=== PATIENT | female | born 1975 | race Native Hawaiian/Other Pacific Islander ===

== ENCOUNTER 2017-01-23 08:48 | Outpatient (CLI) | payer BC | END 2017-01-23 19:17 | disposition home or self-care (01) | LOC: MAMMO 08:48 | DX: Z12.31 Encounter for screening mammogram for malignant neoplasm of breast (principal) ==

== ENCOUNTER 2018-01-25 09:10 | Outpatient (CLI) | payer BC | END 2018-01-25 22:47 | disposition home or self-care (01) | LOC: MAMMO 09:10 | DX: Z12.31 Encounter for screening mammogram for malignant neoplasm of breast (principal) ==

== ENCOUNTER 2018-02-10 09:34 | Outpatient (CLI) | payer BC | END 2018-02-10 19:02 | disposition home or self-care (01) | LOC: MAMMO 09:34 | DX: R92.8 Other abnormal and inconclusive findings on diagnostic imaging of breast (principal) ==

== ENCOUNTER 2019-02-04 08:39 | Outpatient (CLI) | payer BC | END 2019-02-04 19:37 | disposition home or self-care (01) | LOC: MAMMO 08:39 | DX: Z12.31 Encounter for screening mammogram for malignant neoplasm of breast (principal) ==

== ENCOUNTER 2020-02-07 09:12 | Outpatient (CLI) | payer BC | END 2020-02-07 19:09 | disposition home or self-care (01) | LOC: MAMMO 09:12 | PROVIDERS: ATTEND Nurse Practitioner Family | DX: Z12.31 Encounter for screening mammogram for malignant neoplasm of breast (principal) ==

== ENCOUNTER 2021-02-18 10:43 | Outpatient (CLI) | payer BC | END 2021-02-18 18:51 | disposition home or self-care (01) | LOC: MAMMO 10:43 | PROVIDERS: ATTEND Nurse Practitioner Family | DX: Z12.31 Encounter for screening mammogram for malignant neoplasm of breast (principal) ==

== ENCOUNTER 2022-02-25 08:37 | Outpatient (CLI) | payer BC | END 2022-02-25 20:32 | disposition home or self-care (01) | LOC: MAMMO 08:37 | PROVIDERS: ATTEND Nurse Practitioner Family | DX: Z12.31 Encounter for screening mammogram for malignant neoplasm of breast (principal) ==

== ENCOUNTER 2022-03-27 09:45 | Outpatient (CLI) | payer BC | END 2022-03-27 20:40 | disposition home or self-care (01) | LOC: MAMMO 09:45 | PROVIDERS: ATTEND Nurse Practitioner Family | DX: R92.8 Other abnormal and inconclusive findings on diagnostic imaging of breast (principal) ==